=== PATIENT | female | born 1965 | race Caucasian/White ===

== ENCOUNTER → 2016-12-29 | Outpatient (CLI) | payer BC ==
[2016-03-11 13:01] VITALS: BP 120/77
[~2016-12-29] MED LIST: ADVIL200 MG PO; LASIX20 M1 PO; TYLENOL 325MG325 MG PO
== END ==
LOC: RAD 16:12
DX: R05 Cough (principal); R49.0 Dysphonia; M50.321 Other cervical disc degeneration at C4-C5 level; M50.322 Other cervical disc degeneration at C5-C6 level

== ENCOUNTER → 2017-01-20 | Outpatient (CLI) | payer BC ==
[2016-03-11 13:01] VITALS: BP 120/77
== END ==
LOC: LAB 14:24 → MAMMO 14:24
DX: R53.83 Other fatigue (principal); I10 Essential (primary) hypertension; Z12.31 Encounter for screening mammogram for malignant neoplasm of breast
CPT/HCPCS: G0202

== ENCOUNTER → 2017-02-13 | Outpatient (CLI) | payer BC ==
[2016-03-11 13:01] VITALS: BP 120/77
[2017-02-13 23:42] LABS: T3 FREE 2.7 pg/mL (1.7-3.7)
== END ==
LOC: LAB 12:13
PROVIDERS: Family Medicine
DX: R94.6 Abnormal results of thyroid function studies (principal)

== ENCOUNTER → 2017-03-17 | Day surgery (SDC) | payer BC ==
[2016-03-11 13:01] VITALS: BP 120/77
== END ==
LOC: MSO 07:17
DX: Z12.11 Encounter for screening for malignant neoplasm of colon (principal); F17.210 Nicotine dependence, cigarettes, uncomplicated
CPT/HCPCS: 00810; J2704; J3010; J7120

== ENCOUNTER → 2017-04-07 | Outpatient (CLI) | payer BC ==
[2016-03-11 13:01] VITALS: BP 120/77
[2017-04-07 15:38] LABS: BASO # 0.1 (0.02-0.10); EOS # 0.1 (0.04-0.40); EOS % 1.1 % (1.0-5.0); HEMATOCRIT 44.3 % (37.0-47.0); HEMOGLOBIN 14.8 g/dL (12.5-16.0); LYMPH# 4.3 (1.50-4.00); MEAN CELL VOLUME 92 fl (78-100); MEAN CORPUSCULAR HEMOGLOBIN 31 pg (27-31); MEAN CORPUSCULAR HGB CONC 33 g/dL (33-37); MEAN PLATELET VOLUME 11.5 fl (7.4-10.4); MONO # 0.6 (0.20-0.80); NEU # 5.1 (1.40-6.50); PLATELET COUNT 261 K/mm3 (130-400); RED BLOOD COUNT 4.82 M/mm3 (4.10-5.30); WHITE BLOOD COUNT 10.1 K/mm3 (4.8-10.8)
[2017-04-07 15:44] LABS: CALCIUM 9.3 mg/dL (8.4-10.2); POTASSIUM 4.1 mmol/L (3.6-5.0)
[2017-04-08 01:04] LABS: T3 TOTAL 127 ng/dL (87-178)
== END ==
LOC: LAB 14:52
PROVIDERS: Family Medicine
DX: R94.6 Abnormal results of thyroid function studies (principal); I10 Essential (primary) hypertension; H53.9 Unspecified visual disturbance; Z01.419 Encounter for gynecological examination (general) (routine) without abnormal findings

== ENCOUNTER → 2019-02-15 | Outpatient (CLI) | payer BC ==
[2016-03-11 13:01] VITALS: BP 120/77
[2019-02-15 12:42] LABS: EOS # 0.1 (0.04-0.40); EOS % 1.1 % (1.0-5.0); HEMATOCRIT 47.5 % (37.0-47.0); HEMOGLOBIN 15.4 g/dL (12.5-16.0); LYMPH# 3.4 (1.50-4.00); MEAN CELL VOLUME 91 fl (78-100); MEAN CORPUSCULAR HEMOGLOBIN 30 pg (27-31); MEAN CORPUSCULAR HGB CONC 32 g/dL (33-37); MEAN PLATELET VOLUME 11.2 fl (7.4-10.4); MONO # 0.5 (0.20-0.80); NEU # 5.5 (1.40-6.50); PLATELET COUNT 287 K/mm3 (130-400); RED CELL DISTRIBUTION WIDTH 13.6 % (11.5-14.5); WHITE BLOOD COUNT 9.6 K/mm3 (4.8-10.8)
[2019-02-15 12:51] LABS: ALBUMIN 4.1 g/dL (3.5-5.0); POTASSIUM 4.3 mmol/L (3.5-5.1)
[2019-02-15 12:52] LABS: CALCIUM 9.6 mg/dL (8.3-10.5)
[2019-02-15 12:53] LABS: TOTAL PROTEIN 7.4 g/dL (6.4-8.3)
[2019-02-15 12:55] LABS: TOTAL BILIRUBIN 0.3 mg/dL (0.2-1.2)
== END ==
LOC: LAB 12:01
PROVIDERS: Family Medicine
DX: Z00.00 Encounter for general adult medical examination without abnormal findings (principal); E03.9 Hypothyroidism, unspecified; E78.5 Hyperlipidemia, unspecified; D64.9 Anemia, unspecified

== ENCOUNTER → 2024-03-31 | Outpatient (CLI) | payer OTHER ==
[~2024-03-31] MED LIST changes: +CALCIUM500 M1 PO; +SYNTHROID112 MCG PO
== END ==
LOC: AMSURD 14:28
DX: R07.9 Chest pain, unspecified (principal)